=== PATIENT | female | born 1955 | race Two or more races ===

== ENCOUNTER 2020-01-14 14:52 | Inpatient (IN) | payer BC ==
[~2020-01-14] VITALS: Ht 165.1 cm; Wt 103.1 kg
[2020-01-14] MEDS ORDERED: SODIUM CHLORIDE 0.9% 1,000 ML IV ONE (15:02)
[2020-01-14] MEDS ORDERED: SODIUM CHLORIDE FLUSH 10ML SYR IVF ONE (15:30)
[2020-01-14] MEDS ORDERED: SODIUM CHLORIDE 0.9% 1,000ML IVBOLUS ONE ×3 (15:30→17:30)
[2020-01-14] MEDS ORDERED: PLEASE ENTER ALLERGIES MC SCH (15:30)
[2020-01-14 15:41] LABS: BASOPHILS % (AUTO) 0 % (0-1); EOSINOPHILS % (AUTO) 0 % (1-7); LYMPHOCYTES # (AUTO) 0.93 x10^3/uL (1-3.4); LYMPHOCYTES % (AUTO) 9 % (22-44); MD NO; MEAN CORPUSCULAR HEMOGLOBIN 27.2 pg (27.0-34.8); MEAN CORPUSCULAR HGB CONC 32.5 g/dL (32.4-35.8); MEAN CORPUSCULAR VOLUME 83.7 fL (80-100); MEAN PLATELET VOLUME 11.8 fL (7.4-10.4); MONOCYTES % (AUTO) 3 % (2-9); NEUTROPHILS # (AUTO) 9.66 x10^3/uL (1.8-6.8); NEUTROPHILS % (AUTO) 89 % (42-75); PLATELET COUNT 232 x10^3/uL (130-400); RED CELL DISTRIBUTION WIDTH 13.4 % (9.6-15.2)
[2020-01-14 15:49] LABS: ACETONE, SERUM Large (80mg/dL) (Negative)
[2020-01-14] MEDS ORDERED: ENAL20TA PO (15:50)
[2020-01-14] MEDS ORDERED: ERGO50CA PO (15:50)
[2020-01-14] MEDS ORDERED: AMLO-150 PO (15:50)
--- NOTE | 2020-01-14 16:23 | NUR ---
Piv placed without difficult in left wrist. Pt tolerated well.
[2020-01-14] MEDS ORDERED: INSULIN REGULAR 100 UNITS/ML, 3ML VIAL IVPush ONE (16:30)
[2020-01-14 16:57] LABS: ALANINE AMINOTRANSFERASE 27 U/L (12-78); ALBUMIN 4.3 g/dL (3.4-5.0); ANION GAP 29 mmol/L (5-15); CALCIUM 9.8 mg/dL (8.5-10.1); CHLORIDE 103 mmol/L (98-107); CREATININE 1.89 mg/dL (0.55-1.02); SALICYLATE LEVEL 4.9 mg/dL (2.8-20.0)
[2020-01-14] MEDS ORDERED: INSULIN SINGLE DOSE, ER ONE (16:58)
[2020-01-14 16:59] LABS: ALKALINE PHOSPHATASE 129 U/L (45-117); BILIRUBIN,TOTAL 0.5 mg/dL (0.2-1.0); TOTAL PROTEIN 10.2 g/dL (6.4-8.2)
[2020-01-14 17:02] LABS: TROPONIN I < 0.015 ng/mL (0.000-0.045)
[2020-01-14] MEDS ORDERED: REGULAR INSULIN 100 UNITS in SODIUM CHLORIDE 0.9% 99 ML IV PRN (17:15)
[2020-01-14] MEDS: SODIUM CHLORIDE 0.9% 1,000 ML IV SCH ×2 (17:15→22:57)
[2020-01-14] MEDS ORDERED: ONDANSETRON 2MG/ML, 2ML IV PRN (17:30)
[2020-01-14 18:55] LABS: AMPHETAMINE SCREEN, URINE Negative (Negative); BARBITURATE SCREEN, URINE Negative (Negative); BENZODIAZEPINE SCREEN, URINE Negative (Negative); CANNABINOID SCREEN, URINE Negative (Negative); COCAINE SCREEN, URINE Negative (Negative); METHADONE SCREEN, URINE Negative (Negative); OPIATE SCREEN, URINE Negative (Negative)
[2020-01-14 19:02] LABS: MICROSCOPIC INDICATED
--- NOTE | 2020-01-14 19:24 | NUR ---
REPORT TO [facility] IN [facility]
[2020-01-14 19:49] LABS: ANION GAP 23 mmol/L (5-15); CALCIUM 8.9 mg/dL (8.5-10.1); CHLORIDE 113 mmol/L (98-107); CREATININE 1.72 mg/dL (0.55-1.02)
--- NOTE | 2020-01-14 19:59 | NUR ---
Spoke with Dr. Moody and pt still has anion gap and Insulin drip needs to be started. Pt needs to remain on ciritical care and insulin drip to be started.
--- NOTE | 2020-01-14 20:06 | NUR ---
INSULIN DRIP REQUESTED FROM PHARMACY
[2020-01-14] MEDS: ENOXAPARIN 40 MG/0.4 ML SQ SCH (21:43)
[2020-01-15 01:28] LABS: ANION GAP 17 mmol/L (5-15); CALCIUM 8.9 mg/dL (8.5-10.1); CHLORIDE 119 mmol/L (98-107); CREATININE 1.51 mg/dL (0.55-1.02)
[2020-01-15] MEDS: SODIUM CHLORIDE 0.9% 1,000 ML IV SCH ×2 (04:02→16:00)
[2020-01-15 04:57] LABS: ANION GAP 13 mmol/L (5-15); CALCIUM 8.8 mg/dL (8.5-10.1); CHLORIDE 120 mmol/L (98-107); CREATININE 1.44 mg/dL (0.55-1.02)
[2020-01-15] MEDS: D5%-0.45NACL+KCL 20MEQ 1,000 ML IV SCH ×2 (05:09→14:48)
[2020-01-15 06:00] VITALS: BP 130/63
[2020-01-15 06:15] VITALS: BP 138/72
[2020-01-15 08:51] LABS: ANION GAP 9 mmol/L (5-15); CALCIUM 8.5 mg/dL (8.5-10.1); CHLORIDE 122 mmol/L (98-107); CREATININE 1.32 mg/dL (0.55-1.02)
[2020-01-15 15:10] LABS: ANION GAP 8 mmol/L (5-15); CALCIUM 8.7 mg/dL (8.5-10.1); CHLORIDE 121 mmol/L (98-107); CREATININE 1.28 mg/dL (0.55-1.02)
[2020-01-15] MEDS ORDERED: INSULIN GLARGINE 100 UNITS/ML, PEN ONE (15:58)
[2020-01-15] MEDS: INSULIN LISPRO 100 UNITS/ML, PEN SQ-INSULIN SCH ×2 (16:00→20:59)
[2020-01-15] MEDS ORDERED: POTASSIUM CHLORIDE 20 MEQ TAB.ER.PRT PO ONE (16:00)
[2020-01-15] MEDS ORDERED: INSULIN LISPRO 100 UNITS/ML, PEN ONE (16:01)
[2020-01-15] MEDS ORDERED: POTASSIUM CHLORIDE 20 MEQ TAB.ER.PRT ONE (16:02)
[2020-01-15] MEDS: INSULIN GLARGINE 100 UNITS/ML, PEN SQ-INSULIN SCH (16:14)
[2020-01-15 19:08] VITALS: BP 124/55
[2020-01-15] MEDS: OXYcodone IR 5MG TABLET PO PRN (20:59)
[2020-01-15] MEDS: ENOXAPARIN 40 MG/0.4 ML SQ SCH (21:01)
[2020-01-16 02:25] VITALS: BP 130/66
[2020-01-16] MEDS: SODIUM CHLORIDE 0.9% 1,000 ML IV SCH (02:52)
[2020-01-16] MEDS: OXYcodone IR 5MG TABLET PO PRN ×3 (02:53→20:46)
[2020-01-16] MEDS: INSULIN GLARGINE 100 UNITS/ML, PEN SQ-INSULIN SCH ×2 (05:46→17:12)
[2020-01-16 05:59] LABS: CHLORIDE 116 mmol/L (98-107)
[2020-01-16 06:05] LABS: ANION GAP 9 mmol/L (5-15); CALCIUM 8.2 mg/dL (8.5-10.1); CREATININE 1.04 mg/dL (0.55-1.02)
[2020-01-16 06:47] VITALS: BP 146/82
[2020-01-16] MEDS: INSULIN LISPRO 100 UNITS/ML, PEN SQ-INSULIN SCH ×4 (07:52→20:45)
[2020-01-16] MEDS ORDERED: ENALAPRIL 20MG TABLET PO SCH (09:00)
[2020-01-16] MEDS ORDERED: AMLODIPINE 5 MG TABLET PO SCH (09:00)
[2020-01-16] MEDS ORDERED: ACETAMINOPHEN 500 MG TABLET PO PRN (10:30)
[2020-01-16 12:30] VITALS: BP 86/55
[2020-01-16 20:14] VITALS: BP 92/41
[2020-01-16] MEDS: ENOXAPARIN 40 MG/0.4 ML SQ SCH (20:45)
[2020-01-17 01:03] VITALS: BP 95/51
[2020-01-17] MEDS: INSULIN GLARGINE 100 UNITS/ML, PEN SQ-INSULIN SCH ×2 (04:12→16:12)
[2020-01-17 05:49] LABS: BASOPHILS # (AUTO) 0.06 x10^3/uL (0-0.1); BASOPHILS % (AUTO) 1 % (0-1); EOSINOPHILS # (AUTO) 0.07 x10^3/uL (0-0.4); EOSINOPHILS % (AUTO) 1 % (1-7); LYMPHOCYTES # (AUTO) 3.62 x10^3/uL (1-3.4); LYMPHOCYTES % (AUTO) 50 % (22-44); MD NO; MEAN CORPUSCULAR HGB CONC 32.9 g/dL (32.4-35.8); MEAN PLATELET VOLUME 12.4 fL (7.4-10.4); MONOCYTES # (AUTO) 0.45 x10^3/uL (0.2-0.8); MONOCYTES % (AUTO) 6 % (2-9); NEUTROPHILS # (AUTO) 3.11 x10^3/uL (1.8-6.8); NEUTROPHILS % (AUTO) 43 % (42-75); PLATELET COUNT 126 x10^3/uL (130-400); RED BLOOD COUNT 4.32 x10^6/uL (3.82-5.3); RED CELL DISTRIBUTION WIDTH 13.4 % (9.6-15.2)
[2020-01-17 05:55] LABS: CHLORIDE 112 mmol/L (98-107)
[2020-01-17 06:04] LABS: ALANINE AMINOTRANSFERASE 20 U/L (12-78); ALBUMIN 2.9 g/dL (3.4-5.0); ALKALINE PHOSPHATASE 85 U/L (45-117); ANION GAP 9 mmol/L (5-15); BILIRUBIN,TOTAL 0.3 mg/dL (0.2-1.0); CALCIUM 8.8 mg/dL (8.5-10.1); CREATININE 1.27 mg/dL (0.55-1.02); TOTAL PROTEIN 6.7 g/dL (6.4-8.2)
[2020-01-17 06:50] VITALS: BP 99/60
[2020-01-17] MEDS: INSULIN LISPRO 100 UNITS/ML, PEN SQ-INSULIN SCH ×4 (07:43→21:22)
[2020-01-17] MEDS ORDERED: ENALAPRIL 20MG TABLET PO SCH (09:00)
[2020-01-17] MEDS ORDERED: SODIUM CHLORIDE 0.9% 1,000 ML IV SCH (18:00)
[2020-01-17 20:28] VITALS: BP 119/83
[2020-01-17] MEDS: ENOXAPARIN 40 MG/0.4 ML SQ SCH (21:21)
[2020-01-18 01:28] VITALS: BP 133/74
[2020-01-18] MEDS: OXYcodone IR 5MG TABLET PO PRN (01:48)
[2020-01-18] MEDS: INSULIN GLARGINE 100 UNITS/ML, PEN SQ-INSULIN SCH ×2 (04:55→17:25)
[2020-01-18 05:21] LABS: ANION GAP 5 mmol/L (5-15); CALCIUM 8.1 mg/dL (8.5-10.1); CHLORIDE 113 mmol/L (98-107); CREATININE 0.87 mg/dL (0.55-1.02)
[2020-01-18] MEDS: LISINOPRIL 20 MG TABLET PO SCH ×2 (09:00→09:32)
[2020-01-18] MEDS: INSULIN LISPRO 100 UNITS/ML, PEN SQ-INSULIN SCH ×4 (09:32→20:56)
[2020-01-18 10:01] VITALS: BP 121/75
[2020-01-18 12:26] VITALS: BP 118/90
[2020-01-18 18:50] VITALS: BP 127/68
[2020-01-18] MEDS: ENOXAPARIN 40 MG/0.4 ML SQ SCH (20:56)
[2020-01-19 02:24] VITALS: BP 120/69
[2020-01-19] MEDS: INSULIN GLARGINE 100 UNITS/ML, PEN SQ-INSULIN SCH (05:06)
[2020-01-19 06:50] VITALS: BP 130/65
[2020-01-19] MEDS ORDERED: INSU100I11 SQ-INSULIN (06:59)
[2020-01-19] MEDS ORDERED: INSU100I13 SQ-INSULIN (06:59)
[2020-01-19] MEDS: INSULIN LISPRO 100 UNITS/ML, PEN SQ-INSULIN SCH (07:30)
[2020-01-19] MEDS: LISINOPRIL 20 MG TABLET PO SCH ×2 (08:49)
== END 2020-01-19 09:39 | disposition home or self-care (01) | DRG 637 ==
LOC: ED 17:57 → EDIP 18:52 → CCU 20:36 → 3N 01-15 19:01 → DCLOUNGE 01-19 09:31
PROVIDERS: ADMIT Internal Medicine; ATTEND Hospitalist
PROC: 0T9B70Z Drainage of Bladder with Drainage Device, Via Natural or Artificial Opening (ICD-10-PCS; principal; 2020-01-14)
DX: E11.10 Type 2 diabetes mellitus with ketoacidosis without coma (principal); G93.41 Metabolic encephalopathy; N17.0 Acute kidney failure with tubular necrosis; D72.828 Other elevated white blood cell count; E55.9 Vitamin D deficiency, unspecified; E86.0 Dehydration; I10 Essential (primary) hypertension; I95.9 Hypotension, unspecified; Z79.4 Long term (current) use of insulin; Z86.73 Personal history of transient ischemic attack (TIA), and cerebral infarction without residual deficits
CPT/HCPCS: 36415; 70450; 71045; 80048; 80053; 80307; 81001; 82010; 82140; 82800; 82962; 83036; 83605; 83690; 83735; 84100; 84484; 85025; 87081; 93005; 96361; 96374; 96375; G0378; J1650; J1815; J3480; J7030